=== PATIENT | female | born 1980 | race Caucasian/White ===

== ENCOUNTER 2018-06-12 08:37 | Observation (INO) ==
[2018-06-12] MEDS ORDERED: Diatrizoate Meglum/Diatrizoate Sod Liq 9 ML UDC ONE (09:45)
--- NOTE | 2018-06-12 09:51 | ED ---
HPI General Chief complaint: SMOKING PIPE MOUNTER Stated complaint: Poss Hemorrhoid Complaint Time Seen by Provider: 06/12/18 09:17 History of Present Illness HPI Narrative: This is a 38-year-old female with no significant past medical history, presents today with complaints of blood in her stool times several days. Patient reports that she is noted blood in and around her stool times several days. Patient states that she feels the urge to have a bowel movement and when she does, she notes the blood. Patient also reports external hemorrhoid that is "hard in texture". She denies any actual bleeding from the hemorrhoid. Patient gives history that her brother several years ago had a GI bleed and was told that it was polyps. She has no previous history of GI bleed. Patient does report generalized weakness. She also reports near syncope. There is no chest pain or chest pressure. There are no other complaints the time of my examination. Related Data Home Medications Medication Instructions Recorded Confirmed No Known Home Medications 06/12/18 06/12/18 Allergies Allergy/AdvReac Type Severity Reaction Status Date / Time No Known Allergies Allergy Unverified 06/12/18 08:49 Review of Systems ROS: all other systems reviewed are negative Constitutional Reports system reviewed and no additional complaints, except as docu Eyes Reports system reviewed and no additional complaints, except as docu ENT Reports system reviewed and no additional complaints, except as docu Cardiovascular Denies chest pain and Denies dyspnea Respiratory Reports system reviewed and no additional complaints, except as docu and Denies dyspnea Gastrointestinal Reports abdominal pain (Episode earlier however patient also reported vaginal bleeding at that time.), Reports hematochezia, Denies nausea and Denies vomiting Genitourinary Reports system reviewed and no additional complaints, except as docu Musculoskeletal Reports other (Generalized weakness) Integumentary/Breasts Reports system reviewed and no additional complaints, except as docu Neurologic Reports syncope (Near syncope) and Reports weakness (Generalized) [facility] Medical History Medical History Hx of hemorrhoids (Acute) No significant past surgical history (Acute) Smoker (Acute) Family History Family History Other Heart disease Polyp of colon Social History Social History Substance History: No History of Abuse Second Hand Smoke Exposure: No Smoking Status: Never smoker Tobacco Type: Cigarettes How Often Do You Have a Drink Containing Alcohol: 2 to 4 times a month Recent Travel in [facility] within the Last 8 Weeks: No Recent Out of Country Travel within the Last 8 Weeks: No Immunization History Tetanus Immunization: >5 Years Hx Influenza Vaccine This Season: No Exam Narrative Exam Narrative: GENERAL: Well-developed well-nourished female in no acute respiratory distress. SKIN: Focused skin assessment warm/dry. HEAD: Atraumatic. Normocephalic. EYES: No scleral icterus. Conjunctiva did not appear pale. NECK: Trachea midline. Supple. CARDIOVASCULAR: Regular rate and rhythm. No murmur appreciated. RESPIRATORY: No accessory muscle use. Clear to auscultation. Breath sounds equal bilaterally. GASTROINTESTINAL: Abdomen soft, thin. There is minimal tenderness to palpation in her mid periumbilical area. No rebound no guarding. RECTAL EXAM: In the presence of the nurse. Pea-shaped thrombosed hemorrhoid noted. No bleeding from the hemorrhoid. On digital rectal examination there was mucousy stool noted that tested heme positive for blood. MUSCULOSKELETAL: No obvious deformities. No clubbing. No cyanosis. No edema. NEUROLOGICAL: Awake and alert. No obvious cranial nerve deficits. Motor grossly within normal limits. Normal speech. PSYCHIATRIC: Appropriate mood and affect; insight and judgment normal. Course Initial Documented Vital Signs Temperature 98.1 F 06/12/18 08:41 Pulse Rate 73 06/12/18 08:41 Respiratory Rate 17 06/12/18 08:41 Blood Pressure 134/88 06/12/18 08:41 Pulse Oximetry 100 06/12/18 08:41 Last Documented Vital Signs Temperature 97.7 F 06/12/18 15:55 Pulse Rate 63 06/12/18 15:55 Respiratory Rate 15 06/12/18 15:55 Blood Pressure 124/77 06/12/18 15:55 Pulse Oximetry 100 06/12/18 15:55 Medical Decision Making [facility] Narrative Medical decision making narrative: 38-year-old female presents with blood per rectum times several days. The patient has an external hemorrhoid however it does not appear to be bleeding. Patient does have heme positive stools. H&H is stable at this time. Given her history of the blood being mixed in between her stools and her family history of polyps, patient will be admitted under observation and have a GI consult. Case was [facility] with [facility]. Rodarte[facility], who agrees with the above plan. Medical Screen Exam Complete: Yes Emergency Medical Condition: Yes Differential Diagnosis Differential Diagnosis: Upper GI bleed versus lower GI bleed versus hemorrhoidal bleed. Lab Data Result diagrams: 06/12/18 09:40 06/12/18 09:40 POC Results POC Urine Results Negative Lab Results 06/12/18 06/12/18 06/12/18 Range/Units 09:40 09:40 09:40 WBC 5.6 (4.0-11.0) th/mm3 RBC 4.33 (4.00-5.30) mil/mm3 Hgb 11.6 (11.6-15.3) gm/dL Hct 34.5 L (35.0-46.0) % MCV 79.7 L (80.0-100.0) fL MCH 26.7 L (27.0-34.0) pg MCHC 33.5 (32.0-36.0) % RDW 13.6 (11.6-17.2) % Plt Count 223 (150-450) th/mm3 MPV 9.8 (7.0-11.0) fL Neut % (Auto) 64.7 (16.0-70.0) % Lymph % (Auto) 25.2 (9.0-44.0) % [place] % (Auto) 8.0 (0.0-8.0) % Eos % (Auto) 1.4 (0.0-4.0) % Baso % (Auto) 0.7 (0.0-2.0) % Neut # (Auto) 3.6 (1.8-7.7) th/mm3 Lymph # (Auto) 1.4 (1.0-4.8) th/mm3 [place] # (Auto) 0.4 (0.0-0.9) th/mm3 Eos # (Auto) 0.1 (0.0-0.4) th/mm3 Baso # (Auto) 0.0 (0.0-0.2) th/mm3 WBC Differential . Differential Comment Auto diff final PT 11.2 (9.8-11.6) sec INR 1.1 Ratio APTT 25.3 (24.3-30.1) sec Sodium 141 (136-145) meq/L Potassium 4.0 (3.5-5.1) meq/L Chloride 105 (98-107) meq/L Carbon Dioxide 31.1 (21.0-32.0) meq/L Anion Gap 5 (5-15) meq/L BUN 9 (7-18) mg/dL Creatinine 0.63 (0.50-1.00) mg/dL Estimated GFR Greater than 89 (>89) mL/min Random Glucose 88 (74-106) mg/dL Calcium 8.8 (8.5-10.1) mg/dL Total Bilirubin 0.5 (0.2-1.0) mg/dL AST 14 L (15-37) U/L ALT 24 (10-53) U/L Alkaline Phosphatase 41 L (45-117) U/L Total Protein 7.7 (6.4-8.2) g/dL Albumin 3.9 (3.4-5.0) g/dL Blood Type Antibody Screen 06/12/18 Range/Units 09:40 WBC (4.0-11.0) th/mm3 RBC (4.00-5.30) mil/mm3 Hgb (11.6-15.3) gm/dL Hct (35.0-46.0) % MCV (80.0-100.0) fL MCH (27.0-34.0) pg MCHC (32.0-36.0) % RDW (11.6-17.2) % Plt Count (150-450) th/mm3 MPV (7.0-11.0) fL Neut % (Auto) (16.0-70.0) % Lymph % (Auto) (9.0-44.0) % [place] % (Auto) (0.0-8.0) % Eos % (Auto) (0.0-4.0) % Baso % (Auto) (0.0-2.0) % Neut # (Auto) (1.8-7.7) th/mm3 Lymph # (Auto) (1.0-4.8) th/mm3 [place] # (Auto) (0.0-0.9) th/mm3 Eos # (Auto) (0.0-0.4) th/mm3 Baso # (Auto) (0.0-0.2) th/mm3 WBC Differential Differential Comment PT (9.8-11.6) sec INR Ratio APTT (24.3-30.1) sec Sodium (136-145) meq/L Potassium (3.5-5.1) meq/L Chloride (98-107) meq/L Carbon Dioxide (21.0-32.0) meq/L Anion Gap (5-15) meq/L BUN (7-18) mg/dL Creatinine (0.50-1.00) mg/dL Estimated GFR (>89) mL/min Random Glucose (74-106) mg/dL Calcium (8.5-10.1) mg/dL Total Bilirubin (0.2-1.0) mg/dL AST (15-37) U/L ALT (10-53) U/L Alkaline Phosphatase (45-117) U/L Total Protein (6.4-8.2) g/dL Albumin (3.4-5.0) g/dL Blood Type A Positive Antibody Screen Negative Imaging Data Radiologist's impression: Abdomen/Pelvis CT 06/12/18 09:36 CONCLUSION: 1. Negative CT Abdomen and Pelvis with contrast. Discharge Plan Discharge Disposition Patient Disposition: 30 Still Patient Discharge Details Diagnosis: GI bleed Physicians Team ED Provider: Odell Joyce Primary Care Provider: Primary Care Ruth Mcclelland Attending Provider: Nico Rodarte Other Providers: Humberto Chan Discharge Interventions Interventions: ED Discharge Assessment Last Done: 06/12/18 16:05 Discharge Planning - Case Management Last Done: 06/12/18 14:08 Status ED Status: Left Department Discharge Information Discharge Date/Time: 06/12/18 16:05
[2018-06-12 10:17] LABS: Baso % (Auto) 0.7 % (0.0-2.0); Eos # (Auto) 0.1 th/mm3 (0.0-0.4); Eos % (Auto) 1.4 % (0.0-4.0); Hematocrit 34.5 % (35.0-46.0); Hemoglobin 11.6 gm/dL (11.6-15.3); Lymph # (Auto) 1.4 th/mm3 (1.0-4.8); Lymph % (Auto) 25.2 % (9.0-44.0); Mean Corpuscular HGB Conc 33.5 % (32.0-36.0); Mean Corpuscular Hemoglobin 26.7 pg (27.0-34.0); Mean Corpuscular Volume 79.7 fL (80.0-100.0); Mean Platelet Volume 9.8 fL (7.0-11.0); Mono # (Auto) 0.4 th/mm3 (0.0-0.9); Neut # (Auto) 3.6 th/mm3 (1.8-7.7); Neut % (Auto) 64.7 % (16.0-70.0); Platelet Count 223 th/mm3 (150-450); Red Blood Count 4.33 mil/mm3 (4.00-5.30); Red Cell Distribution Width 13.6 % (11.6-17.2); White Blood Count 5.6 th/mm3 (4.0-11.0)
[2018-06-12 10:31] LABS: Activated Partial Thrombo Time 25.3 sec (24.3-30.1); INR 1.1 Ratio; Prothrombin Time 11.2 sec (9.8-11.6)
[2018-06-12] MEDS ORDERED: Diatrizoate Meglum/Diatrizoate Sod Liq 9 ML UDC PO ONE (10:34)
[2018-06-12 10:35] LABS: Alanine Aminotransferase 24 U/L (10-53); Albumin 3.9 g/dL (3.4-5.0); Anion Gap 5 meq/L (5-15); Aspartate Aminotransferase 14 U/L (15-37); Blood Urea Nitrogen 9 mg/dL (7-18); Calcium 8.8 mg/dL (8.5-10.1); Carbon Dioxide 31.1 meq/L (21.0-32.0); Chloride 105 meq/L (98-107); Glomerular Filtration Rate Greater Than 89 mL/min (>89); Glucose,Random 88 mg/dL (74-106); Sodium 141 meq/L (136-145)
[2018-06-12 10:38] LABS: Alkaline Phosphatase 41 U/L (45-117); Total Protein 7.7 g/dL (6.4-8.2)
[2018-06-12] MEDS ORDERED: Acetaminophen 325 MG Tablet PO PRN (12:18)
[2018-06-12] MEDS ORDERED: Temazepam 15 MG Capsule PO PRN (12:18)
[2018-06-12] MEDS ORDERED: Magnesium Citrate Liq 300 ML Bottle PO ONE ×2 (16:00→17:00)
[2018-06-12] MEDS ORDERED: Pantoprazole Inj 40 MG Vial IV.PUSH SCH (21:00)
[2018-06-13] MEDS ORDERED: Metoprolol Tartrate 25 MG Tablet PO ONE (02:30)
[2018-06-13] MEDS ORDERED: Chlorhexidine Gluconate 2% 1 Pack (2 Cloths) TOPICAL ONE (02:30)
[2018-06-13] MEDS ORDERED: Sodium Chlor 0.9% Inj 500 ML IV.SIG SCH (03:00)
[2018-06-13 04:51] LABS: Baso % (Auto) 0.6 % (0.0-2.0); Eos # (Auto) 0.1 th/mm3 (0.0-0.4); Eos % (Auto) 2.1 % (0.0-4.0); Hematocrit 38.8 % (35.0-46.0); Hemoglobin 12.6 gm/dL (11.6-15.3); Lymph # (Auto) 1.7 th/mm3 (1.0-4.8); Mean Corpuscular HGB Conc 32.5 % (32.0-36.0); Mean Corpuscular Hemoglobin 25.9 pg (27.0-34.0); Mean Corpuscular Volume 79.7 fL (80.0-100.0); Mean Platelet Volume 9.9 fL (7.0-11.0); Mono # (Auto) 0.5 th/mm3 (0.0-0.9); Mono % (Auto) 8.5 % (0.0-8.0); Neut % (Auto) 62.8 % (16.0-70.0); Platelet Count 251 th/mm3 (150-450); Red Blood Count 4.86 mil/mm3 (4.00-5.30); Red Cell Distribution Width 13.3 % (11.6-17.2); White Blood Count 6.4 th/mm3 (4.0-11.0)
[2018-06-13 05:31] LABS: Anion Gap 9 meq/L (5-15); Blood Urea Nitrogen 9 mg/dL (7-18); Calcium 9.3 mg/dL (8.5-10.1); Chloride 105 meq/L (98-107); Glomerular Filtration Rate Greater Than 89 mL/min (>89); Glucose,Random 81 mg/dL (74-106); Potassium 3.8 meq/L (3.5-5.1); Sodium 141 meq/L (136-145)
[2018-06-13] MEDS ORDERED: Lidocaine PF 1% Inj 5 ML Syringe OTHER ONE (10:50)
== END 2018-06-13 14:45 | disposition home or self-care (01) ==
LOC: NEPE 08:37 → NEDA 08:37 → N06 17:20
PROVIDERS: ADMIT Hospitalist; ATTEND Hospitalist